=== PATIENT | female | born 1970 | race Caucasian/White ===

== ENCOUNTER 2016-10-30 01:15 | Emergency (ER) | payer OTHER ==
[~2016-10-30] VITALS: Ht 162.6 cm; Wt 56.7 kg
[~2016-10-30 01:15] MED LIST: BACTO TP; DOL10 PO; HAB14T TD; LEVO500T6 PO; VANC750S IV
--- NOTE | 2016-10-30 01:15 | NUR ---
Patient was BIBA and taken to bed 07 via gurney per EMS.
--- NOTE | 2016-10-30 01:20 | NUR ---
BIB BY [employer] [facility], HOMELESS WITH 6/10 PAIN ON BILATERAL LEGS WITH ABSCESS EXTENDING TO THE ABDOMEN. NO NAUSEA/VOMITING/DIARRHEA. UNABLE TO AMBULATE CLAIMED. EXAMINED BY DR. RAMIREZ.
[2016-10-30 01:26] VITALS: BP 120/80
[2016-10-30] MEDS ORDERED: ceFAZolin 1,000 MG VIAL IM ONE (01:45)
[2016-10-30] MEDS ORDERED: KETOROLAC 60 MG/2 ML VIAL IM ONE (01:45)
[2016-10-30 03:27] LABS: HEMATOCRIT 35.8 % (36-48); HEMOGLOBIN 11.6 g/dL (12.0-16.0); MEAN CORPUSCULAR HEMOGLOBIN 25 pg (27-31); MEAN CORPUSCULAR HGB CONC 32 g/dL (33-37); MEAN CORPUSCULAR VOLUME 77 fL (80-94); RED BLOOD CELL COUNT(AUTO) 4.64 MIL/uL (4.20-5.40); WHITE BLOOD COUNT (AUTO) 9.4 K/uL (4.8-10.8)
[2016-10-30 03:29] LABS: ANION GAP 11.4 (8-16); CALCIUM 8.3 mg/dL (8.5-10.1); CARBON DIOXIDE 26.8 mmol/L (21-32); CREATININE 0.7 mg/dL (0.6-1.3); POTASSIUM 4.2 mmol/L (3.5-5.1); TOTAL BILIRUBIN 0.3 mg/dL (0.0-1.0); TOTAL PROTEIN, SERUM 8.2 g/dL (6.4-8.2)
[2016-10-30 03:32] LABS: PLATELET COUNT (AUTO) 541 K/uL (140-450)
[2016-10-30 03:33] LABS: BAND % (MANUAL) 3 % (0-8); EOSINOPHILS % (MANUAL) 1 % (0-4); LYMPHOCYTES % (MANUAL) 22 % (20-46); MONOCYTES % (MANUAL) 1 % (5-12); NEUTROPHILS % (MANUAL) 73 (43-65)
[2016-10-30] MEDS ORDERED: ACETAMINOPHEN 325 MG TAB PO PRN (03:55)
[2016-10-30] MEDS ORDERED: VANCOMYCIN PER PHARMACY MC PRN (03:55)
[2016-10-30] MEDS ORDERED: MORPHINE SULFATE 4 MG/ML SYR IVP PRN (03:55)
[2016-10-30] MEDS ORDERED: ONDANSETRON 4 MG/2 ML VIAL IVP PRN (03:55)
[2016-10-30] MEDS ORDERED: MORPHINE SULFATE 2 MG/ML SYR IVP PRN (03:55)
[2016-10-30 04:14] LABS: AMPHETAMINE, URINE POS. ng/ml (NEG <=1000); BARBITURATE, URINE NEG. ng/ml (NEG <=200); BENZODIAZEPINE, URINE NEG. ng/mL (NEG <=200); CANNABINOID, URINE NEG. ng/mL (NEG <=50); COCAINE, URINE NEG. ng/mL (NEG <=300); OPIATE, URINE POS. ng/mL (NEG <=2000); PHENCYCLIDINE SCREEN,URINE NEG. ng/mL (NEG <=25)
--- NOTE | 2016-10-30 06:01 | NUR ---
UNABLE TO INSERT PERIPHERAL IV AND PATIENT REFUSED. DR. RAMIREZ INFORMED. FOR PICC LINE INSERTION IN AM, OLERICULTURIST JOCE INFORMED.
--- NOTE | 2016-10-30 06:07 | NUR ---
CALLED PICC LINE RN [phone] LEFT A MESSAGE REGARDING A REQUEST FOR PICC INSERTION
--- NOTE | 2016-10-30 06:49 | NUR ---
PATROL CAPTAIN CALLED AND INFORMED THAT PATIENT REFUSED TO SIGN PICC LINE AT THIS TIME BUT SHE AGREED EARLIER.
[2016-10-30] MEDS ORDERED: VANCOMYCIN 1GM/DEXT 5% PREMIX 200 ML IV SCH (07:00)
--- NOTE | 2016-10-30 07:26 | NUR ---
RREPORT RECIEVED FROM STEVE GONZALEZ
--- NOTE | 2016-10-30 07:27 | NUR ---
PT IS SLEEPING AT THIS TIME;NO ACUTE DISTRESS NOTED ATVTHIS TIME;WILL ONTINUE TO MONITOR PT.
--- NOTE | 2016-10-30 07:43 | NUR ---
TRIED TO TAKE VS;PT DON'T WANT TO BE DISTURBED;NO ACUTE DISTRESS NOTED AT THIS TIME;WILL CONTINUE TO MONITOR PT.
[2016-10-30] MEDS ORDERED: VANCOMYCIN 750 MG in DEXTROSE 5% 250 ML IV SCH (08:00)
--- NOTE | 2016-10-30 08:30 | NUR ---
PT WOKE UP;CHARGE NURSE ROSALIE TALKED TO PT;PT VERBALIZES DESIRES TO GO HOME;CHARGE NURSE NOTIFIED DR SHANKS.
--- NOTE | 2016-10-30 08:52 | NUR ---
Patient does not wish to proceed with medical care recommended by DR BOJORQUEZ. Patient given information related to possible complications, up to and including , which could occur as a result of leaving hospital at this time. Patient verbalizes understanding of risks involved leaving against medical advice. Patient has signed AMA form.PT DISCHARGED W/ PRESCRIPTION OF KEFLEX AND BACTRIM.PT SIGNED AMA FORM.
[2016-10-30 08:56] VITALS: BP 119/72
[2016-10-30] MEDS ORDERED: ENOXAPARIN 40 MG/0.4 ML SYR SUBQ SCH (09:00)
[2016-10-30] MEDS ORDERED: CLINDAMYCIN 600 MG in DEXTROSE 5% 50 ML IV SCH (12:00)
== END 2016-10-30 08:52 | disposition left against medical advice (07) ==
LOC: MED 01:15 → MTU 03:54 → UNDOADMIN 03:54
DX: L03.311 Cellulitis of abdominal wall (principal); L03.115 Cellulitis of right lower limb; L03.116 Cellulitis of left lower limb; D53.9 Nutritional anemia, unspecified; B19.20 Unspecified viral hepatitis C without hepatic coma; F11.90 Opioid use, unspecified, uncomplicated; F17.210 Nicotine dependence, cigarettes, uncomplicated; Z59.0 Homelessness; Z86.14 Personal history of Methicillin resistant Staphylococcus aureus infection; L02.211 Cutaneous abscess of abdominal wall; Z88.0 Allergy status to penicillin
CPT/HCPCS: 36415; 80053; 80305; 81025; 85025; 96372; 99284; J0690; J1885; J3370; J3490; J7060

== ENCOUNTER 2017-02-06 12:41 | Emergency (ER) | payer OTHER ==
[~2017-02-06] VITALS: Ht 162.6 cm; Wt 59.2 kg
[2017-02-06 13:07] VITALS: BP 130/80
--- NOTE | 2017-02-06 16:24 | NUR ---
PATIENT LEFT WITHOUT BEING SEEN BY DR. SHORT. NO FURTHER CARE PROVIDED FOR PATIENT.
== END 2017-02-06 16:24 | disposition left against medical advice (07) ==
LOC: MED 12:45
DX: L02.11 Cutaneous abscess of neck (principal); L02.416 Cutaneous abscess of left lower limb; L02.415 Cutaneous abscess of right lower limb; Z53.21 Procedure and treatment not carried out due to patient leaving prior to being seen by health care provider

== ENCOUNTER 2018-09-30 10:12 | Inpatient (IN) | payer OTHER ==
[~2018-09-30] VITALS: Ht 162.6 cm; Wt 70.3 kg
[2018-09-30 10:20] VITALS: BP 143/87
--- NOTE | 2018-09-30 10:27 | NUR ---
PT AMBULATES BACK TO THE LOBBY
--- NOTE | 2018-09-30 10:53 | NUR ---
PT AMBULATED TO ER BED 8
--- NOTE | 2018-09-30 11:03 | NUR ---
PATIENT PRESENTS TO ED WITH THE CHIEF C/O ABSCESS ON RLQ FOR 3 DAYS. RED BUMP ABSCESS NOTED. NO DRAINAGE NOTED FROM THE SITE. PT STATES THERE WAS REDNESS AND IT IS GROWING. TENDERNESS TO TOUCH. HAS CHILLS YESTERDAY PER PT. PT IS METHADONE ABUSER. DENIES N/V/D AT THIS TIME. SKIN IS PINK/WARM/DRY. AAOX4 WITH EVEN AND STEADY GAIT. PT DENIES ANY CP, SOB, OR COUGH AT THIS TIME. PATIENT STATES PAIN OF 8/10 AT THIS TIME. VSS. PATIENT POSITIONED FOR COMFORT; HOB ELEVATED; BEDRAILS UP X2. BED DOWN. ER MD MADE AWARE OF PT STATUS.
[2018-09-30] MEDS ORDERED: NACL 0.9% 2,000 ML IV SCH (11:26)
[2018-09-30] MEDS ORDERED: VANCOMYCIN 1,000 MG in DEXTROSE 5% 250 ML IV ONE (11:30)
[2018-09-30] MEDS ORDERED: CLINDAMYCIN 900 MG in DEXTROSE 5% 100 ML IV ONE (11:30)
--- NOTE | 2018-09-30 11:39 | NUR ---
CXR AT BEDSIDE
[2018-09-30] MEDS ORDERED: CLINDAMYCIN 900 MG/6 ML VIAL IV ONE (12:08)
[2018-09-30] MEDS ORDERED: VANCOMYCIN 1,000 MG VIAL ONE (12:08)
--- NOTE | 2018-09-30 12:18 | NUR ---
LAB COMPLETED THEIR DRAW. ULTRASOUND AT BEDSIDE
[2018-09-30 12:26] LABS: BASOPHILS # (AUTO) 0.2 K/uL (0.00-0.22); BASOPHILS % (AUTO) 1.6 % (0.0-2.0); EOSINOPHILS # (AUTO) 0.1 K/uL (0-0.4); EOSINOPHILS % (AUTO) 0.8 % (0.0-4.0); HEMATOCRIT 35.8 % (36-48); HEMOGLOBIN 11.8 g/dL (12.0-16.0); LYMPHOCYTES # (AUTO) 1.4 K/uL (2.5-16.5); LYMPHOCYTES % (AUTO) 12.9 % (20.5-51.1); MEAN CORPUSCULAR HEMOGLOBIN 26 pg (27-31); MEAN CORPUSCULAR HGB CONC 33 g/dL (33-37); MEAN CORPUSCULAR VOLUME 79.2 fL (80-94); MONOCYTES # (AUTO) 0.6 K/uL (0.8-1.0); MONOCYTES % (AUTO) 5.7 % (1.7-9.3); NEUTROPHILS # (AUTO) 8.6 K/uL (1.8-7.7); PLATELET COUNT (AUTO) 443 K/uL (140-450); RED BLOOD CELL COUNT(AUTO) 4.52 MIL/uL (4.20-5.40); RED CELL DISTRIBUTION WIDTH 15.1 % (11.6-13.7); WHITE BLOOD COUNT (AUTO) 10.9 K/uL (4.8-10.8)
[2018-09-30 12:56] LABS: ANION GAP 9.6 (8-16); CARBON DIOXIDE 29.2 mmol/L (21-32); CHLORIDE 104 mmol/L (98-107); CREATININE 0.7 mg/dL (0.6-1.3); GFR ARICAN-AMERICAN 116 mL/min (>90); GLUCOSE 67 mg/dL (74-106); POTASSIUM 3.8 mmol/L (3.5-5.1); SODIUM SERUM 139 mmol/L (136-145); UREA NITROGEN, BLOOD 13 mg/dL (7-18)
[2018-09-30 13:01] LABS: PROTHROMBIN TIME 9.5 secs (10.8-13.4)
[2018-09-30 13:02] LABS: ALBUMIN 2.9 g/dL (3.4-5.0); ASPARTATE AMINOTRANSFERASE 32 U/L (15-37); SALICYLATE 3.5 mg/dL (2.8-20.0); TOTAL BILIRUBIN 0.3 mg/dL (0.0-1.0)
--- NOTE | 2018-09-30 13:04 | NUR ---
DENIES ANY PAIN AT THIS TIME. LUNCH TRAY PROVIDED.
[2018-09-30 13:06] LABS: APPEARANCE,URINE SL CLOUDY (CLEAR); BARBITURATE, URINE NEG. ng/ml (NEG <=200); BENZODIAZEPINE, URINE NEG. ng/mL (NEG <=200); BILIRUBIN,URINE NEGATIVE (NEGATIVE); BLOOD, URINE NEGATIVE (NEGATIVE); CANNABINOID, URINE NEG. ng/mL (NEG <=50); COCAINE, URINE NEG. ng/mL (NEG <=300); COLOR,URINE DARK YELLOW (YELLOW); LEUKOCYTE ESTERASE ,URINE NEGATIVE (NEGATIVE); NITRITE, URINE NEGATIVE (NEGATIVE); OPIATE, URINE POS. ng/mL (NEG <=2000); PH,URINE 7.5 (5.0-9.0); PHENCYCLIDINE SCREEN,URINE NEG. ng/mL (NEG <=25); UGLUCOSE NEGATIVE (NEGATIVE)
[2018-09-30 13:10] LABS: ACETAMINOPHEN < 0.5 ug/ml (10-30)
[2018-09-30] MEDS ORDERED: HYDROcodone/APAP 5/325 MG 1 TAB TAB PO PRN ×2 (13:55)
[2018-09-30] MEDS ORDERED: ONDANSETRON 4 MG/2 ML VIAL IVP PRN (13:55)
[2018-09-30] MEDS ORDERED: VANCOMYCIN PER PHARMACY MC PRN (13:55)
[2018-09-30] MEDS ORDERED: ACETAMINOPHEN 325 MG TAB PO PRN (13:55)
--- NOTE | 2018-09-30 14:15 | NUR ---
PT SENT TO CT WITH SIM [id number] AT THIS TIME
[2018-09-30] MEDS ORDERED: DOL10 PO (14:16)
--- NOTE | 2018-09-30 14:28 | NUR ---
BACK FROM CT.
--- NOTE | 2018-09-30 14:35 | NUR ---
Patient will be admitted to care of Dr. Negro. Admited to MedSurg Unit. Will go to rooM 115. Belongings list completed.
--- NOTE | 2018-09-30 14:40 | NUR ---
PT TRANSFERRED TO [facility] ROOM 115 VIA RMARQUETTE ON STABLE CONDITION. REPORT GIVEN TO CHARGE NURSE JUAN LUIS.
--- NOTE | 2018-09-30 15:20 | NUR ---
RECEIVED PT REPORT FROM ED NURSE. PT IS AWAKE AND ALERT, NO S/S OF ACUTE DISTRESS. PT C/O PAIN ON THE R ABD. R ABD NOTED TO BE RED AND INFLAMED, WARM TO TOUCH, AND RIGID, SKIN IS INTACT HOWEVER. PT IS ON ROOM AIR, SKIN IS INTACT. PT IS AMBULATORY. IV SITE NOTED ON THE L SHOULDER, 24 G. 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 CALL LIGHT WITHIN REACH. VS STABLE: BP 116/70, HGR 60, TEMP 97.7, RESP 14, O2 98% ON RA.
[2018-09-30 15:57] VITALS: BP 116/70
--- NOTE | 2018-09-30 18:23 | NUR ---
PT STATES THAT SHE IS ON METHADONE FOR DRUG ADDICTION. CALLED PT'S METH[facility]ONE CLINIC TO CLARIFY HER METHADONE DOSAGE, BUT THEY ARE ALREADY CLOSED. WILL ENDORSE TO PROMOTIONAL MODEL TO LET TOMORROW'S NURSE KNOW.
[2018-09-30] MEDS ORDERED: NICOTINE TRANSD SYS 21 MG/24 HR PATCH TD SCH ×2 (18:35→19:00)
--- NOTE | 2018-09-30 19:20 | NUR ---
PATIENT ENDORSED TO [employer] CERTIFIED ORTHOTIST IN STABLE CONDITION.
--- NOTE | 2018-09-30 19:21 | NUR ---
RECEIVED REPORT FROM STEVE BURTON FOR CONTINUITY OF CARE. PT IS A/OX4, ON ROOM AIR. PT ABLE TO MAKE NEEDS KNOWN, AND ABLE TO FOLLOW COMMANDS. PT AMBULATES WITH STEADY GAIT. SKIN IS INTACT, BUT THERE IS A LOT OF SCAR TISSUE ON ABDOMEN AND B/L LEGS. PT HAS A 24G IV TO LEFT SHOULDER, ASYMPTOMATIC AND INTACT. VITAL SIGNS WITHIN NORMAL LIMITS. PT STABLE, DENIES PAIN, NO SIGNS OF DISTRESS NOTED AT THIS TIME. PT POSITIONED FOR COMFORT. BED IN LOWEST POSITION, BED ALARM ON. WILL CONTINUE TO MONITOR.
[2018-09-30 20:00] VITALS: BP 107/73
--- NOTE | 2018-09-30 20:30 | NUR ---
PT C/O 02/03 ABD PAIN. ADMINISTERED NORCO FOR PAIN, PT TOLERATED WELL.
--- NOTE | 2018-09-30 22:21 | NUR ---
PT RESTING COMFORTABLY. NO SIGNS OF DISTRESS NOTED AT THIS TIME. BED IN LOWEST POSITION, BED ALARM ON. WILL CONTINUE TO MONITOR.
[2018-10-01] VITALS: BP 117/66
--- NOTE | 2018-10-01 | NUR ---
VITAL SIGNS WITHIN NORMAL LIMITS. PT STABLE, DENIES PAIN, NO SIGNS OF DISTRESS NOTED AT THIS TIME. PT POSITIONED FOR COMFORT. BED IN LOWEST POSITION, BED ALARM ON. WILL CONTINUE TO MONITOR.
[2018-10-01] MEDS ORDERED: VANCOMYCIN 1,250 MG in DEXTROSE 5% 250 ML IV SCH (01:00)
--- NOTE | 2018-10-01 02:24 | NUR ---
PT REQUESTED BEDPAN BECAUSE HER IV/TUBING WAS CONNECTED TO PUMP. PT USED BEDPAN AND CLEANED HERSELF. NO C/O PAIN. NO SIGNS OF DISTRESS. BED IN LOWEST POSITION, BED ALARM ON. WILL CONTINUE TO MONITOR.
--- NOTE | 2018-10-01 04:44 | NUR ---
PT STABLE, NO SIGNS OF DISTRESS NOTED AT THIS TIME. PT POSITIONED FOR COMFORT. BED IN LOWEST POSITION, BED ALARM ON. WILL CONTINUE TO MONITOR.
--- NOTE | 2018-10-01 06:45 | NUR ---
PT STATES SHE WANTS TO LEAVE AMA. WHEN ASKED WHICH REASON MADE HER WANT TO LEAVE SHE SAID THE BEEPING OF THE MACHINES WAS BOTHERING HER, SHE VOIDED IN BED, SOMEONE TRYING TO TAKE BLOOD FROM HER BOTHERED HER AND THAT SHE JUST WASN'T GOOD AT BEING IN HOSPITALS. PT STATES SHE IS WAITING FOR HER GIRL FRIEND THEN LEAVING AND THAT SHE WILL SEE HER PRIMARY DOCTOR.
--- NOTE | 2018-10-01 06:57 | NUR ---
SPOKE TO DR VEGA REGARDING PT WANTING TO LEAVE AMA. DR VEGA SAID "IT'S OK."
--- NOTE | 2018-10-01 07:10 | NUR ---
PT LEFT AMA. CALLED PRESSURISED CONTAINER FILLER FRANKIE AND LET HER KNOW. Addendum: 10/01/18 at 0806 by Laxmi Acosta RN IV WAS PULLED OUT BEFORE PT LEFT, AND PT LEFT WITH ALL PERSONAL BELONGINGS, IN STABLE CONDITION.
[2018-10-01] MEDS ORDERED: NICOTINE TRANSD SYS 21 MG/24 HR PATCH TD SCH (09:00)
== END 2018-10-01 07:10 | disposition left against medical advice (07) | DRG 383 ==
LOC: MED 10:12 → MTU 14:04
PROVIDERS: ADMIT Hospitalist; ATTEND Hospitalist
DX: L03.311 Cellulitis of abdominal wall (principal); E44.1 Mild protein-calorie malnutrition; L02.211 Cutaneous abscess of abdominal wall; F19.10 Other psychoactive substance abuse, uncomplicated; F15.10 Other stimulant abuse, uncomplicated; Z53.21 Procedure and treatment not carried out due to patient leaving prior to being seen by health care provider; Z86.14 Personal history of Methicillin resistant Staphylococcus aureus infection; Z88.0 Allergy status to penicillin; Z86.19 Personal history of other infectious and parasitic diseases; Z90.49 Acquired absence of other specified parts of digestive tract; Z71.51 Drug abuse counseling and surveillance of drug abuser; Z68.26 Body mass index [BMI] 26.0-26.9, adult
CPT/HCPCS: 36415; 71045; 76705; 80053; 80305; 81003; 81025; 83605; 85025; 85610; 85730; 87040; 87081; 87086; 99285; G0480; G0482; J3370; J3490; J7060; Q0092

== ENCOUNTER 2023-11-26 12:22 | Emergency (ER) | payer OTHER ==
[~2023-11-26] VITALS: Ht 167.6 cm; Wt 68.0 kg
[~2023-11-26 12:22] MED LIST changes: -BACTO TP; +CLIN300C73 PO; -DOL10 PO; -HAB14T TD; -LEVO500T6 PO; +METH-1550 PO; +SULF-58 PO; -VANC750S IV
[2023-11-26 12:31] VITALS: BP 142/92; PULSE 90; RESP 26; TEMP 97.9; O2SAT 100
[2023-11-26 14:46] VITALS: BP 134/70; PULSE 88; RESP 20; TEMP 98.3; O2SAT 98
== END 2023-11-26 14:19 | disposition home or self-care (01) ==
LOC: MED 12:22
DX: T40.41 Poisoning by, adverse effect of and underdosing of fentanyl or fentanyl analogs (principal); Z79.899 Other long term (current) drug therapy; Z88.0 Allergy status to penicillin; Y92.89 Other specified places as the place of occurrence of the external cause
CPT/HCPCS: 99283

== ENCOUNTER 2024-01-07 09:18 | Emergency (ER) | payer OTHER ==
[~2024-01-07] VITALS: Ht 162.6 cm; Wt 63.5 kg
[2024-01-07 09:36] VITALS: BP 146/95; PULSE 74; RESP 18; TEMP 98.1; O2SAT 100
[2024-01-07] MEDS ORDERED: ONDANSETRON 4 MG ODT ONE (10:17)
[2024-01-07] MEDS: ONDANSETRON 4 MG ODT PO ONE (10:20)
[2024-01-07 10:24] VITALS: BP 122/68; PULSE 80; RESP 18; TEMP 97.3; O2SAT 99
== END 2024-01-07 10:20 ==
LOC: MED 09:18
DX: F11.10 Opioid abuse, uncomplicated (principal); Z79.2 Long term (current) use of antibiotics; Z79.899 Other long term (current) drug therapy; Z88.0 Allergy status to penicillin
CPT/HCPCS: 99283; Q0162